=== PATIENT | male | born 1965 | race American Indian/Alaskan Native ===

== ENCOUNTER 2017-10-08 13:00 | Day surgery (SDC) | payer OTHER ==
--- NOTE | 2017-10-08 13:54 | Anesthesia Consultation ---
Anesthesia Consult and Med Hx Date of service: 10/08/17 - Airway Anesthetic Teeth Evaluation: Caps ROM Head & Neck: Adequate Mental/Hyoid Distance: Inadequate Mallampati Class: Class IV Intubation Access Assessment: Possibly Difficult - Pulmonary Exam CTA: Yes - Cardiac Exam Cardiac Exam: RRR - Pre-Operative Health Status ASA Pre-Surgery Classification: ASA3 Proposed Anesthetic Plan: MAC - Pulmonary Hx Asthma: Yes Hx Sleep Apnea: Yes - Cardiovascular System Hx Hypertension: Yes - Other Systems Hx Obesity: Yes
--- NOTE | 2017-10-08 13:54 | Anesthesia Day of Surgery ---
Anesthesia Day of Surgery - Day of Surgery Patient Examined: Yes Patient H&P Reviewed: Yes Patient is NPO: Yes
[2017-10-08] MEDS ORDERED: NACL 0.9% 1000 ML 1,000 ML IV SCH (14:00)
[2017-10-08] MEDS ORDERED: DIPRIVAN 10 MG/ML IV ONE ×2 (14:41)
[2017-10-08 16:12] VITALS: BP 115/73
--- NOTE | 2017-10-08 17:48 | Operative Report ---
Operative Report Operative Report: Date of procedure: 10/08/2017 Procedure: Colonoscopy. Attending physician: Kiko Alejandre MD Senior Applications Analyst: Kiko Alejandre MD Indication: Patient is a 52-year-old male who presents for colonoscopy for colorectal cancer screening. A colonoscopy serves to evaluate patient so that treatment may be directed based on the findings. Consent: Informed consent was obtained after advising the patient and family regarding nature of this procedure, its indications, potential benefits as well as possible complications including but not limited to bleeding perforation and adverse reaction to medication, infection as well as other cardiopulmonary complications. An informed written and verbal consent was then obtained after due opportunity was provided for questions and answers. Monitoring: Patient was monitored continuously with pulse oximetry and electrocardiographic recordings as well as blood pressure recordings. Vital signs remained stable throughout this procedure with no untoward events. Preoperative assessment: Patient was assessed immediately prior to this procedure for capacity to tolerate monitored anesthesia care and moderate sedation as well as general anesthesia. Patient's ASA classification is 2, Mallampati class is 2, Hyomental distance is 3. Instrument: [email or web address] video colonoscope Medications: Propofol given intravenously in divided doses. For details please refer to anesthesia records. Description of procedure: Patient was placed in the left lateral decubitus position after achieving sedation, a digital rectal examination was performed following which the colonoscope was introduced into the anal verge and advanced to the cecum which was identified by the ileocecal valve, the appendiceal orifice, as well as by the cecal strap and direct transillumination. The colonoscope was subsequently withdrawn with careful inspection of all mucosal surfaces. Patient tolerated this procedure well and was subsequently taken to the recovery room. The following findings were noted. Findings: Patient had melanosis coli of mild to moderate severity, involving the entirety of the colon to the cecum. The preparation was adequate. On the retroflex view at the anal verge, patient had internal hemorrhoids. Impression: Melanosis coli. Internal hemorrhoids otherwise normal colonoscopy. Plan: High-fiber diet. Repeat colonoscopy in 10 years.
--- NOTE | 2017-10-08 17:48 | Discharge Summary ---
Short Stay Discharge Plan Activity: advance as tolerated Weight Bearing Status: Weight Bear as Tolerated Diet: regular Additional Instructions: Post Sedation D/C Instructions When you return home you may resume your regular diet unless otherwise directed. -Go directly home from the hospital and rest quietly. You may resume normal activities tomorrow. -Do NOT drive, return to work, operate any machinery or make any important personal or business decisions today. -Do NOT drink any alcohol or take nerve or sleeping drugs. They add to the effects of the medicine still present in your body. Follow up with: SOPHY NOBLES MD [Primary Care Provider] - 7 Days
== END 2017-10-08 13:01 | disposition home or self-care (01) ==
LOC: GIO 13:00
PROVIDERS: ATTEND Internal Medicine Gastroenterology
DX: K64.8 Other hemorrhoids (principal); K63.89 Other specified diseases of intestine; J45.909 Unspecified asthma, uncomplicated; Z88.8 Allergy status to other drugs, medicaments and biological substances; Z79.899 Other long term (current) drug therapy
CPT/HCPCS: 45378; J2704; J7030